=== PATIENT | female | born 2000 | race Caucasian/White ===

== ENCOUNTER 2019-09-12 08:00 | Outpatient (CLI) | payer MEDICAID ==
--- NOTE | 2019-09-12 14:19 | XRAY Report ---
Reason: RIGHT GROIN PAIN Procedure Date: 09/12/2019 Accession Number: [id number] / [id number] Procedure: [facility]CP - Pelvis 1 View CPT Code: Final Report FULL RESULT: EXAM: PELVIS RADIOGRAPHY EXAM DATE: 09/12/2019 01:55 PM. CLINICAL HISTORY: RIGHT GROIN PAIN. COMPARISON: None. TECHNIQUE: 1 view. FINDINGS: Bones: No acute fracture lines are seen. Screws in the right pubis, right acetabulum, and traversing the right SI joint appear intact without evidence for surrounding lucency or break. Irregularity of the right superior and inferior pubic rami may reflect sequelae of remote fractures. Joints: Normal alignment of the hip joints, SI joints, pubic symphysis. Soft Tissues: No soft tissue swelling. IUD noted. IMPRESSION: 1. No evidence for acute fracture or dislocation of the pelvis. Prior fractures of the right pubis are seen. Expected appearance and alignment of screws for internal fixation. [facility]
== END 2019-09-12 23:59 | disposition home or self-care (01) ==
LOC: DI.WCP 08:00
PROVIDERS: ATTEND Physician Assistant
DX: R10.31 Right lower quadrant pain (principal)
CPT/HCPCS: 72170

== ENCOUNTER 2021-03-26 08:00 | Outpatient (CLI) | payer MEDICAID ==
[2021-03-26 11:56] LABS: BASOPHILS # (AUTO) 0.1 10^3/uL (0.0-0.1); EOSINOPHILS # (AUTO) 0.6 10^3/uL (0.0-0.7); HCT - HEMATOCRIT 43.1 % (37.0-47.0); HGB - HEMOGLOBIN 14.6 g/dL (12.0-16.0); LYMPHOCYTES # (AUTO) 1.9 10^3/uL (1.5-3.5); LYMPHOCYTES % (AUTO) 27.8 %; MEAN CORPUSCULAR HEMOGLOBIN 30.9 pg (27.0-31.0); MEAN CORPUSCULAR HGB CONC 33.9 g/dL (32.0-36.0); MEAN CORPUSCULAR VOLUME 91.3 fL (81.0-99.0); MEAN PLATELET VOLUME 9.4 fL (7.9-10.8); MONOCYTES # (AUTO) 0.5 10^3/uL (0.0-1.0); NEUTROPHILS # (AUTO) 3.7 10^3/uL (1.5-6.6); NEUTROPHILS % (AUTO) 55.1 %; PLT - PLATELET COUNT 352 10^3/uL (130-450); RED BLOOD COUNT 4.72 10^6/uL (4.20-5.40); RED CELL DISTRIBUTION WIDTH 12.5 % (12.0-15.0); WHITE BLOOD COUNT 6.8 x10^3/uL (4.8-10.8)
[2021-03-26 12:26] LABS: ALBUMIN 4.6 g/dL (3.2-5.5); ALBUMIN/GLOBULIN RATIO 1.4 (1.0-2.2); ALKALINE PHOSPHATASE 46 IU/L (42-121); ALT ALANINE AMINOTRANSFERASE 14 IU/L (10-60); AST ASPARTATE AMINOTRANSFERASE 13 IU/L (10-42); BILIRUBIN,TOTAL 0.6 mg/dL (0.2-1.0); BUN - BLOOD UREA NITROGEN 16 mg/dL (6-20); CALCIUM 9.8 mg/dL (8.5-10.3); CARBON DIOXIDE - CO2 24 mmol/L (21-32); CHLORIDE 106 mmol/L (101-111); CHOL/HDL RATIO 3.7 (<4.4); CHOLESTEROL 209 mg/dL; CREATININE 0.7 mg/dL (0.4-1.0); GFR - MDRD 105 (>89); GLUCOSE 90 mg/dL (70-100); HDL CHOLESTEROL 57 mg/dL; LDL CHOLESTEROL,CALCULATED 144 mg/dL; LDL/HDL RATIO 2.5 (<4.4); POTASSIUM 4.3 mmol/L (3.5-5.0); SODIUM 140 mmol/L (135-145); TRIGLYCERIDES 41 mg/dL; VLDL CHOLESTEROL 8 mg/dL
== END 2021-03-26 23:59 | disposition home or self-care (01) ==
LOC: LAB.WCP 08:00
PROVIDERS: ATTEND Nurse Practitioner
DX: R53.83 Other fatigue (principal)
CPT/HCPCS: 36415; 80053; 80061; 83721; 85025

== ENCOUNTER 2021-07-16 12:48 | Outpatient (CLI) | payer MEDICAID ==
--- NOTE | 2021-07-16 14:33 | XRAY Report ---
PROCEDURE: Lumbar Spine 2 View INDICATIONS: BACK PAIN, LUMBAR TECHNIQUE: 3 views of the lumbar spine were acquired. COMPARISON: None. FINDINGS: Right sacroiliac arthrodesis screw and partially visualized right anterior pelvic fixation hardware. Sacroiliac joint spaces are maintained. Normal lumbar vertebral body height and alignment. No suspicious lytic or blastic osseous lesion. No significant disc height loss or degenerative endplate change. No significant degenerative changes of the facets or posterior elements. IMPRESSION: No acute finding or significant degenerative change in the lumbar spine. Sacroiliac fusion arthrodesis screw partially visualized pelvic fixation hardware. Reviewed by: Pierre Gonzalez MD on 07/16/2021 2:32 PM PST Approved by: Pierre Gonzalez MD on 07/16/2021 2:32 PM PST Station ID: [id number]
--- NOTE | 2021-07-16 16:31 | XRAY Report ---
PROCEDURE: Thoracic Spine 3 View INDICATIONS: BACK PAIN, LUMBAR TECHNIQUE: 3 views of the thoracic spine were acquired. COMPARISON: None. FINDINGS: Bones: No fractures or dislocations. No suspicious bony lesions. 12 pairs of ribs are noted, and a ppear intact where visualized. Soft tissues: No paravertebral stripe thickening. IMPRESSION: Normal appearance of thoracic spine. Reviewed by: Bernice Miller MD on 07/16/2021 4:29 PM PST Approved by: Bernice Miller MD on 07/16/2021 4:29 PM PST Station ID: [id number]
== END 2021-07-16 12:49 | disposition home or self-care (01) ==
LOC: DI.N 12:48
PROVIDERS: ATTEND Nurse Practitioner
DX: M54.50 Low back pain, unspecified (principal); Z98.1 Arthrodesis status

== ENCOUNTER 2021-09-01 07:26 | Outpatient (CLI) | payer MEDICAID ==
--- NOTE | 2021-09-01 09:43 | MRI Report ---
PROCEDURE: Lumbar Spine W/O INDICATIONS: LUMBAR RADICULOPATHY TECHNIQUE: Noncontrast sagittal T1 spin echo and T2 fast echo, sagittal STIR, axial T1 and T2 fast spin echo thr ough the lumbar spine. In cases with scoliosis, additional coronal T2 fast spin echo may be performe d. COMPARISON: Correlation is made with lumbar plain films, 07/16/2021. FINDINGS: Image quality: Diagnostic, with note made of motion artifact. There is artifact associated with the metallic hardware. Alignment and Curvature: There is normal bony alignment. Bone Marrow: Marrow is of normal overall signal. No acute vertebral body compression fractures. Spinal Cord: Conus medullaris terminates at the L1-L2 level. Visualized cord demonstrates normal si gnal and size. Paraspinous Soft Tissues: No paravertebral masses. T12-L1: Normal in appearance. L1-L2: Normal in appearance. L2-L3: Normal in appearance. L3-L4: Normal in appearance. L4-L5: Normal in appearance. L5-S1: The disc height and disc signal are well preserved. Mild disc bulge is seen. Mild facet h ypertrophy is seen. Moderate bilateral neural foraminal narrowing is seen. No significant central canal narrowing is seen. Postoperative change of the right pelvis is partially seen, with associated susceptibility artifact. IMPRESSION: Moderate bilateral neuroforaminal narrowing can be seen at L5-S1. Reviewed by: Jourdan Reyna MD on 09/01/2021 8:41 AM JR Approved by: Jourdan Reyna MD on 09/01/2021 8:41 AM JR Station ID: [id number]
== END 2021-09-01 07:27 | disposition home or self-care (01) ==
LOC: DI 07:26
PROVIDERS: ATTEND Physician Assistant Medical
DX: M47.817 Spondylosis without myelopathy or radiculopathy, lumbosacral region (principal); M48.07 Spinal stenosis, lumbosacral region

== ENCOUNTER 2022-07-31 17:34 | Emergency (ER) | payer MEDICAID ==
--- OUTSIDE RECORDS SUMMARY | 2022-07-31 17:57 | EXTERNAL MEDICAL SUMMARY RPT | Continuity of Care Document ---
:2000 Author Organization [facility] Address [address] [place] [address] Phone Allergies No information. Encounters No information. Functional Status No information. Immunizations No information. Medications No information. Problems No information. Procedures No information. Results/Labs test date author facility value unit interpret ation Result panel 1 (unknown) (no (unknown) (unknown) (no value) (units (unk nown) date) unknown) (unknown) (no (unknown) (unknown) #18 grams (units (unkn own) date) unknown) (unknown) (no (unknown) (unknown) #6.7 grams (units (unk nown) date) unknown) (unknown) (no (unknown) (unknown) #8.5 grams (units (unk nown) date) unknown) (unknown) (no (unknown) (unknown) <Electronically (units (unknown) date) signed by Kelly Waldrop> (unknown) (no (unknown) (unknown) <Electronically (units (unknown) date) signed by Rebecca alex) [place]> (unknown) (no (unknown) (unknown) <Kelly Waldrop, (units (unknown) date) GLADYS - Last Filed: unknown) 05/01/22 19:39> (unknown) (no (unknown) (unknown) <Rebecca Tolbert (units (unknown) date) DO - Last Filed: unknown) 05/14/22 11:23> (unknown) (no (unknown) (unknown) *If you do not (units (unknown) date) have a primary unknown) care provider please contact [phone] to (unknown) (no (unknown) (unknown) *Please continue (units (unknown) date) to take your unknown) regular medications as directed. (unknown) (no (unknown) (unknown) *Please follow up (units (unknown) date) with your primary unknown) care provider in 2-3 days, call for an (unknown) (no (unknown) (unknown) *Return to (units (unk nown) date) Emergency unknown) Department if you should have any new, worsening, or (unknown) (no (unknown) (unknown) *What to do: (units (u nknown) date) unknown) (unknown) (no (unknown) (unknown) *You have been (units (unknown) date) diagnosed with an unknown) asthma exacerbation, allergic rhinitis with (unknown) (no (unknown) (unknown) [id number] (units (unkno wn) date) unknown) (unknown) (no (unknown) (unknown) 0RF (units (unkno wn) date) unknown) (unknown) (no (unknown) (unknown) 1 inh inhalation (units (unknown) date) BID Qty: 10.6 1RF unknown) (unknown) (no (unknown) (unknown) 1 inh inhalation (units (unknown) date) Q6H PRN (Reason: unknown) shortness of breath or wheezing) Qty: 8.5 (unknown) (no (unknown) (unknown) 1 spray (units (unkno wn) date) intranasal BID unknown) Qty: 16 0RF (unknown) (no (unknown) (unknown) 05/01/22 1939 (units ( unknown) date) unknown) (unknown) (no (unknown) (unknown) 05/01/22 (units (unkno wn) date) unknown) (unknown) (no (unknown) (unknown) 05/14/22 1123 (units ( unknown) date) unknown) (unknown) (no (unknown) (unknown) 16:48 05/01/22 (units (unknown) date) unknown) (unknown) (no (unknown) (unknown) 17:35 05/01/22 (units (unknown) date) unknown) (unknown) (no (unknown) (unknown) 17:44 05/01/22 (units (unknown) date) unknown) (unknown) (no (unknown) (unknown) 18:00 05/01/22 (units (unknown) date) unknown) (unknown) (no (unknown) (unknown) 18:30 (units (unkno wn) date) unknown) (unknown) (no (unknown) (unknown) 19:00 11/19/22 (units (unknown) date) unknown) (unknown) (no (unknown) (unknown) 19:02 (units (unkno wn) date) unknown) (unknown) (no (unknown) (unknown) 19:11 (units (unkno wn) date) unknown) (unknown) (no (unknown) (unknown) 2 inhalation (units (u nknown) date) INHALATION QID PRN unknown) (Reason: shortness of breath or wheezing) (unknown) (no (unknown) (unknown) 2 puff INHALATION (units (unknown) date) Q4-6H PRN (Reason: unknown) shortness of breath or wheezing) Qty: 18 (unknown) (no (unknown) (unknown) 2 puff inhalation (units (unknown) date) Q6H PRN (Reason: unknown) shortness of breath or wheezing) Qty: 8.5 (unknown) (no (unknown) (unknown) 20 mg PO DAILY (units (unknown) date) Qty: 5 0RF unknown) (unknown) (no (unknown) (unknown) 2RF (units (unkno wn) date) unknown) (unknown) (no (unknown) (unknown) Activity (units (unkno wn) date) Restrictions/Addit unknown) ional Instructions: (unknown) (no (unknown) (unknown) After patient (units ( unknown) date) received the unknown) nebulizer, she was moving more air, states that she (unknown) (no (unknown) (unknown) Age/Sex: 22 / F (units (unknown) date) unknown) (unknown) (no (unknown) (unknown) Albuterol (units (unkn own) date) (Albuterol 2.5 unknown) Mg/3 Ml Neb (Adult)) 2.5 mg INH NOW ONE (unknown) (no (unknown) (unknown) Albuterol (units (unkn own) date) (Albuterol Hfa unknown) Prepack) 1 box MIS SEEINSTR ONE (unknown) (no (unknown) (unknown) All questions and (units (unknown) date) concerns answered unknown) at this time. (unknown) (no (unknown) (unknown) Allergic rhinitis (units (unknown) date) trigger: unknown) unspecified Allergic rhinitis seasonality: (unknown) (no (unknown) (unknown) Allergic rhinitis (units (unknown) date) unknown) (unknown) (no (unknown) (unknown) Allergies (units (unkn own) date) unknown) (unknown) (no (unknown) (unknown) Allergy/AdvReac (units (unknown) date) Type Severity unknown) Reaction Status Date / Time (unknown) (no (unknown) (unknown) Asthma (units (unkno wn) date) exacerbation unknown) (unknown) (no (unknown) (unknown) Asthma severity: (units (unknown) date) moderate Asthma unknown) persistence: unspecified Qualified Code(s): (unknown) (no (unknown) (unknown) Blood Pressure (units (unknown) date) 131/75 unknown) (unknown) (no (unknown) (unknown) Blood Pressure (units (unknown) date) 158/92 H 05/01/22 unknown) 16:48 (unknown) (no (unknown) (unknown) Blood Pressure (units (unknown) date) 158/92 H unknown) (unknown) (no (unknown) (unknown) Blood Pressure (units (unknown) date) unknown) (unknown) (no (unknown) (unknown) Cardiovascular: (units (unknown) date) regular rate and unknown) rhythm, no peripheral edema, warm extremities (unknown) (no (unknown) (unknown) Chief Complaint: (units (unknown) date) Shortness of unknown) Breath/Dyspnea (unknown) (no (unknown) (unknown) Clinical (units (unkno wn) date) Impression: unknown) (unknown) (no (unknown) (unknown) Consultation #1: (units (unknown) date) unknown) (unknown) (no (unknown) (unknown) Consultations (units ( unknown) date) unknown) (unknown) (no (unknown) (unknown) Cosign (units (unkno wn) date) unknown) (unknown) (no (unknown) (unknown) Course (units (unkno wn) date) unknown) (unknown) (no (unknown) (unknown) : 2000 (units (unknown) date) Acct:[id number] unknown) (unknown) (no (unknown) (unknown) Date of Service: (units (unknown) date) 05/01/22 unknown) (unknown) (no (unknown) (unknown) Decrease your (units ( unknown) date) stimuli to unknown) triggers, please come back if you get worse, hopefully (unknown) (no (unknown) (unknown) Departure (units (unkn own) date) unknown) (unknown) (no (unknown) (unknown) Diphenhydramine (units (unknown) date) HCl unknown) (Diphenhydramine 25 Mg Tablet) 25 mg PO NOW ONE (unknown) (no (unknown) (unknown) Discharge Plan (units (unknown) date) unknown) (unknown) (no (unknown) (unknown) Discontinued (units (u nknown) date) Medications unknown) (unknown) (no (unknown) (unknown) Documented By: (units (unknown) date) JZF unknown) (unknown) (no (unknown) (unknown) Documented By: (units (unknown) date) DANYELL unknown) (unknown) (no (unknown) (unknown) ED Attending (units (u nknown) date) Cosignature unknown) Attestation: (unknown) (no (unknown) (unknown) ER Physician: (units ( unknown) date) Kelly Waldrop unknown) [employer]ER (unknown) (no (unknown) (unknown) Emergency Report (units (unknown) date) unknown) (unknown) (no (unknown) (unknown) Exam Narrative: (units (unknown) date) unknown) (unknown) (no (unknown) (unknown) Exam (units (unkno wn) date) unknown) (unknown) (no (unknown) (unknown) General (units (unkno wn) date) unknown) (unknown) (no (unknown) (unknown) General: (units (unkno wn) date) cooperative, unknown) comfortable, in no acute distress, well groomed, afebrile (unknown) (no (unknown) (unknown) HEENT: symmetrical (units (unknown) date) facial unknown) expressions, moist mucous membranes, nasal congestion, (unknown) (no (unknown) (unknown) HPI - SOB/Dyspnea (units (unknown) date) unknown) (unknown) (no (unknown) (unknown) HPI Narrative: (units (unknown) date) unknown) (unknown) (no (unknown) (unknown) HPI (units (unkno wn) date) unknown) (unknown) (no (unknown) (unknown) History of (units (unk nown) date) Present Illness unknown) (unknown) (no (unknown) (unknown) Cari Jorgensen, (units (unknown) date) PA-C [Primary Care unknown) Provider] (unknown) (no (unknown) (unknown) I was immediately (units (unknown) date) available in the unknown) department for consultation. Documentation (unknown) (no (unknown) (unknown) Initial Vital (units ( unknown) date) Signs unknown) (unknown) (no (unknown) (unknown) Initial Vital (units ( unknown) date) Signs: unknown) (unknown) (no (unknown) (unknown) Instructions: (units ( unknown) date) Asthma -- Adult, unknown) Allergic Rhinitis (unknown) (no (unknown) (unknown) [facility] (units (unknown) date) [address] [place] [address] unknown) [place] [address] (unknown) (no (unknown) (unknown) It can be helpful (units (unknown) date) to take magnesium unknown) oxide 400 mg at night to relax smooth muscle (unknown) (no (unknown) (unknown) J45.901 - (units (unkn own) date) Unspecified asthma unknown) with (acute) exacerbation (unknown) (no (unknown) (unknown) Last Admin: (units (un known) date) 05/01/22 17:44 unknown) Dose: 1 box (unknown) (no (unknown) (unknown) Last Admin: (units (un known) date) 05/01/22 18:51 unknown) Dose: 40 mg (unknown) (no (unknown) (unknown) Last Admin: (units (un known) date) 05/01/22 18:52 unknown) Dose: 25 mg (unknown) (no (unknown) (unknown) Last Admin: (units (un known) date) 05/01/22 19:02 unknown) Dose: 2.5 mg (unknown) (no (unknown) (unknown) Limitations: no (units (unknown) date) limitations unknown) (unknown) (no (unknown) (unknown) MDM - SOB/Dyspnea (units (unknown) date) unknown) (unknown) (no (unknown) (unknown) MDM Narrative (units ( unknown) date) unknown) (unknown) (no (unknown) (unknown) Medical History (units (unknown) date) (Reviewed 05/01/22 unknown) @ 19:07 by Kelly Waldrop [facility]) (unknown) (no (unknown) (unknown) Medical decision (units (unknown) date) making narrative: unknown) (unknown) (no (unknown) (unknown) Medication (units (unk nown) date) Instructions unknown) Recorded (unknown) (no (unknown) (unknown) Mode of arrival: (units (unknown) date) Family Vehicle unknown) (unknown) (no (unknown) (unknown) Narrative (units (unkn own) date) unknown) (unknown) (no (unknown) (unknown) Narrative: (units (unk nown) date) unknown) (unknown) (no (unknown) (unknown) Neuro: normal (units ( unknown) date) speech and unknown) cognition, A+O x3, ambulatory, clear speech (unknown) (no (unknown) (unknown) New (units (unkno wn) date) unknown) (unknown) (no (unknown) (unknown) No Action (units (unkn own) date) unknown) (unknown) (no (unknown) (unknown) No Known Drug (units ( unknown) date) Allergies Allergy unknown) Verified 02/23/21 21:25 (unknown) (no (unknown) (unknown) No significant (units (unknown) date) past surgical unknown) history (unknown) (no (unknown) (unknown) Railroad] (units (un known) date) unknown) (unknown) (no (unknown) (unknown) Ordered: (units (unkno wn) date) unknown) (unknown) (no (unknown) (unknown) Orders (units (unkno wn) date) unknown) (unknown) (no (unknown) (unknown) Oxygen Delivery (units (unknown) date) Method 05/01/22 unknown) 16:48 (unknown) (no (unknown) (unknown) Oxygen Delivery (units (unknown) date) Method Room Air unknown) Room Air Room Air (unknown) (no (unknown) (unknown) Oxygen Delivery (units (unknown) date) Method unknown) (unknown) (no (unknown) (unknown) Patient (units (unkno wn) date) Disposition: Home unknown) (unknown) (no (unknown) (unknown) Patient History (units (unknown) date) unknown) (unknown) (no (unknown) (unknown) Patient: (units (unkno wn) date) Picken,Tricia M unknown) MR#: [id number] (unknown) (no (unknown) (unknown) Prednisone (units (unk nown) date) (Prednisone 20 Mg unknown) Tablet) 40 mg PO NOW ONE (unknown) (no (unknown) (unknown) Prescriptions: (units (unknown) date) unknown) (unknown) (no (unknown) (unknown) Previous Rx's (units ( unknown) date) unknown) (unknown) (no (unknown) (unknown) Psych: mental (units ( unknown) date) status is grossly unknown) normal, congruent mood, normal affect, pleasant (unknown) (no (unknown) (unknown) Pulse Oximetry 98 (units (unknown) date) 05/01/22 16:48 unknown) (unknown) (no (unknown) (unknown) Pulse Oximetry 98 (units (unknown) date) 98 98 unknown) (unknown) (no (unknown) (unknown) Pulse Oximetry 98 (units (unknown) date) unknown) (unknown) (no (unknown) (unknown) Pulse Rate 70 (units ( unknown) date) unknown) (unknown) (no (unknown) (unknown) Pulse Rate 79 79 (units (unknown) date) 67 unknown) (unknown) (no (unknown) (unknown) Pulse Rate 81 (units ( unknown) date) 05/01/22 16:48 unknown) (unknown) (no (unknown) (unknown) Pulse Rate 81 69 (units (unknown) date) 64 unknown) (unknown) (no (unknown) (unknown) QVAR ordered on (units (unknown) date) her Mar. She has a unknown) new primary care provider there over the (unknown) (no (unknown) (unknown) Qty: 6.7 0RF (units (u nknown) date) unknown) (unknown) (no (unknown) (unknown) Qualifiers: (units (un known) date) unknown) (unknown) (no (unknown) (unknown) Qvar RediHaler 80 (units (unknown) date) mcg/actuation HFA unknown) aerosol breath activated (unknown) (no (unknown) (unknown) Reactive airway (units (unknown) date) disease unknown) (unknown) (no (unknown) (unknown) Referrals: (units (unk nown) date) unknown) (unknown) (no (unknown) (unknown) Related Data (units (u nknown) date) unknown) (unknown) (no (unknown) (unknown) Respiratory Rate (units (unknown) date) 20 05/01/22 16:48 unknown) (unknown) (no (unknown) (unknown) Respiratory Rate (units (unknown) date) 20 16 16 unknown) (unknown) (no (unknown) (unknown) Respiratory Rate (units (unknown) date) unknown) (unknown) (no (unknown) (unknown) Respiratory come (units (unknown) date) and do an unknown) evaluation, she was given an albuterol inhaler and (unknown) (no (unknown) (unknown) Respiratory (units (un known) date) therapy completed unknown) assessment, please see their note, she sounded (unknown) (no (unknown) (unknown) Respiratory: (units (u nknown) date) normal effort, unknown) able to speak in complete sentences, without (unknown) (no (unknown) (unknown) Review of Systems (units (unknown) date) unknown) (unknown) (no (unknown) (unknown) Review of systems (units (unknown) date) is negative for unknown) acute abnormalities unless otherwise noted in (unknown) (no (unknown) (unknown) Reviewed vitals (units (unknown) date) signs and nursing unknown) notes. (unknown) (no (unknown) (unknown) Rx Instructions: (units (unknown) date) unknown) (unknown) (no (unknown) (unknown) Signed By: (units (unk nown) date) unknown) (unknown) (no (unknown) (unknown) Skin: brisk (units (un known) date) capillary refill, unknown) without pallor or erythema (unknown) (no (unknown) (unknown) Smoking Status: (units (unknown) date) Former smoker unknown) (unknown) (no (unknown) (unknown) Social History (units (unknown) date) (Reviewed 05/01/22 unknown) @ 19:07 by Kelly Waldrop [facility]) (unknown) (no (unknown) (unknown) Source: patient (units (unknown) date) unknown) (unknown) (no (unknown) (unknown) Stated Complaint: (units (unknown) date) Asthma unknown) (unknown) (no (unknown) (unknown) Stop: 05/01/22 (units (unknown) date) 17:42 unknown) (unknown) (no (unknown) (unknown) Stop: 05/01/22 (units (unknown) date) 18:45 unknown) (unknown) (no (unknown) (unknown) Stop: 05/01/22 (units (unknown) date) 18:47 unknown) (unknown) (no (unknown) (unknown) Substance Use (units ( unknown) date) Type: marijuana unknown) (unknown) (no (unknown) (unknown) Surgical History (units (unknown) date) (Reviewed 05/01/22 unknown) @ 19:07 by Kelly Waldrop [facility]) (unknown) (no (unknown) (unknown) Temperature 98.5 (units (unknown) date) F 05/01/22 16:48 unknown) (unknown) (no (unknown) (unknown) Temperature 98.5 (units (unknown) date) F unknown) (unknown) (no (unknown) (unknown) Temperature (units (un known) date) unknown) (unknown) (no (unknown) (unknown) This is a (units (unkn own) date) 22-year-old female unknown) presents to the emergency department after she had (unknown) (no (unknown) (unknown) This is a (units (unkn own) date) 22-year-old female unknown) with history of asthma, allergic rhinitis, she was (unknown) (no (unknown) (unknown) Time Seen by (units (u nknown) date) Provider: 05/01/22 unknown) 17:41 (unknown) (no (unknown) (unknown) Visit Report (units (u nknown) date) Forms: Patient unknown) Portal/API (unknown) (no (unknown) (unknown) Vital Signs - 8 (units (unknown) date) hr unknown) (unknown) (no (unknown) (unknown) Vital Signs (units (un known) date) unknown) (unknown) (no (unknown) (unknown) Vital signs: (units (u nknown) date) unknown) (unknown) (no (unknown) (unknown) [facility] (units (unknown) date) Clinic, she unknown) understands to follow-up with them regarding her (unknown) (no (unknown) (unknown) [ ] New (units (unkno wn) date) medication written unknown) as a paper prescription (unknown) (no (unknown) (unknown) [ ] No new (units (unk nown) date) medications given unknown) (unknown) (no (unknown) (unknown) [x ] New (units (unkno wn) date) medication unknown) prescriptions sent to your pharmacy: [ [facility] (unknown) (no (unknown) (unknown) a prepack (units (unkn own) date) albuterol MDI and unknown) had 6 puffs, she was still height, moving air (unknown) (no (unknown) (unknown) a smell of strong (units (unknown) date) perfume which unknown) triggered her asthma and she has been coughing (unknown) (no (unknown) (unknown) administer into (units (unknown) date) each nostril unknown) (unknown) (no (unknown) (unknown) aerosol (Qvar (units ( unknown) date) RediHaler) unknown) (unknown) (no (unknown) (unknown) aerosol inhaler (units (unknown) date) (Ventolin HFA) unknown) shortness of breath or wheezing (unknown) (no (unknown) (unknown) aerosol inhaler (units (unknown) date) of breath or unknown) wheezing #8.5 grams (unknown) (no (unknown) (unknown) aerosol inhaler (units (unknown) date) shortness of unknown) breath or wheezing (unknown) (no (unknown) (unknown) afterwards (units (unk nown) date) unknown) (unknown) (no (unknown) (unknown) albuterol sulfate (units (unknown) date) 90 mcg/actuation 1 unknown) inh inhalation Q6H PRN shortness 05/01/22 (unknown) (no (unknown) (unknown) albuterol sulfate (units (unknown) date) 90 mcg/actuation 2 unknown) inhalation inhalation QID PRN 02/03/21 (unknown) (no (unknown) (unknown) albuterol sulfate (units (unknown) date) 90 mcg/actuation 2 unknown) puff inhalation Q4-6H PRN 12/17/19 (unknown) (no (unknown) (unknown) albuterol sulfate (units (unknown) date) 90 mcg/actuation 2 unknown) puff inhalation Q6H PRN 02/24/21 (unknown) (no (unknown) (unknown) albuterol sulfate (units (unknown) date) 90 mcg/actuation unknown) HFA aerosol inhaler (unknown) (no (unknown) (unknown) albuterol sulfate (units (unknown) date) [Ventolin HFA] 90 unknown) mcg/actuation HFA aerosol inhaler (unknown) (no (unknown) (unknown) alcohol intake (units (unknown) date) frequency: 0-2 unknown) drinks per day (unknown) (no (unknown) (unknown) and cooperative (units (unknown) date) unknown) (unknown) (no (unknown) (unknown) appointment. Let (units (unknown) date) them know you were unknown) seen in the Emergency Department and that we (unknown) (no (unknown) (unknown) as well. (units (unkno wn) date) unknown) (unknown) (no (unknown) (unknown) asked that you be (units (unknown) date) seen for unknown) follow-up. We will electronically transmit a record (unknown) (no (unknown) (unknown) asthma (units (unkno wn) date) exacerbations. She unknown) typically only needs her albuterol inhaler 1 time per (unknown) (no (unknown) (unknown) beclomethasone (units (unknown) date) dipropionate 80 1 unknown) inh inhalation BID #10.6 grams 02/24/21 (unknown) (no (unknown) (unknown) better and is (units ( unknown) date) able to take unknown) deeper breaths now. The pharmacies were closed, she (unknown) (no (unknown) (unknown) coming in. (units (unk nown) date) unknown) (unknown) (no (unknown) (unknown) concerning (units (unk nown) date) symptoms, such as unknown) [fever greater than 101F, chills, worsening pain, (unknown) (no (unknown) (unknown) establish care (units (unknown) date) with one of the unknown) [facility] primary care providers. (unknown) (no (unknown) (unknown) evaluation. She (units (unknown) date) states that she is unknown) short of breath, tight, does not think she (unknown) (no (unknown) (unknown) exposed to a (units (u nknown) date) strong perfume unknown) today which started a coughing exacerbation, states (unknown) (no (unknown) (unknown) feels much better (units (unknown) date) and was coughing unknown) less. Patient is okay with being discharged (unknown) (no (unknown) (unknown) fluticasone (units (un known) date) propionate 50 1 unknown) spray intranasal BID allergic 05/01/22 (unknown) (no (unknown) (unknown) fluticasone (units (un known) date) propionate 50 unknown) mcg/actuation spray,suspension (unknown) (no (unknown) (unknown) fragments as your (units (unknown) date) trigger today. unknown) Please continue with your montelukast, you can (unknown) (no (unknown) (unknown) give neb and (units (u nknown) date) reassess unknown) (unknown) (no (unknown) (unknown) has been (units (unkno wn) date) reviewed. unknown) (unknown) (no (unknown) (unknown) has used it 6 (units ( unknown) date) times since she unknown) arrived. She states that she feels better but (unknown) (no (unknown) (unknown) her 1st trigger (units (unknown) date) was horses and unknown) animal dander, she states that she has multiple (unknown) (no (unknown) (unknown) home (units (unkno wn) date) unknown) (unknown) (no (unknown) (unknown) ibuprofen and or (units (unknown) date) Tylenol as needed unknown) for your symptoms. You may take Benadryl at (unknown) (no (unknown) (unknown) inhaler and she (units (unknown) date) is used it 6 unknown) times, I called for a nebulizer, will assess this (unknown) (no (unknown) (unknown) is wheezing but (units (unknown) date) feels that her unknown) chest is tight. Nurse initiated orders had (unknown) (no (unknown) (unknown) mcg/actuation HFA (units (unknown) date) breath activated unknown) (unknown) (no (unknown) (unknown) mcg/actuation (units ( unknown) date) nasal rhinitis #16 unknown) grams (unknown) (no (unknown) (unknown) mg of Benadryl (units (unknown) date) for her allergic unknown) rhinitis symptoms, stated that she felt much (unknown) (no (unknown) (unknown) month. Patient is (units (unknown) date) appropriate and unknown) amenable to discharge home. Vital signs are (unknown) (no (unknown) (unknown) movement and (units (u nknown) date) sounds tight. unknown) Patient has had 6 albuterol puffs from her MDI, will (unknown) (no (unknown) (unknown) night to help (units ( unknown) date) decrease some unknown) congestion if you have it, please follow-up with (unknown) (no (unknown) (unknown) of prednisone, (units (unknown) date) and she has taken unknown) her other medications. She was also given 25 (unknown) (no (unknown) (unknown) of today's note (units (unknown) date) if your PCP is in unknown) our system (unknown) (no (unknown) (unknown) patient is (units (unk nown) date) breathing through unknown) her mouth (unknown) (no (unknown) (unknown) persistent (units (unk nown) date) vomiting or other unknown) bothersome symptoms]. (unknown) (no (unknown) (unknown) pharmacy, try to (units (unknown) date) avoid triggers, unknown) dry air, cold air, and stay hydrated. Use (unknown) (no (unknown) (unknown) prednisone 20 mg (units (unknown) date) tablet 20 mg PO unknown) DAILY #5 tabs 02/24/21 (unknown) (no (unknown) (unknown) prednisone 20 mg (units (unknown) date) tablet unknown) (unknown) (no (unknown) (unknown) providers as (units (u nknown) date) instructed. unknown) Patient understands plan and agrees to discharge home. (unknown) (no (unknown) (unknown) regimen. I hope (units (unknown) date) that you feel unknown) better soon, thank you for coming in. (unknown) (no (unknown) (unknown) results. Patient (units (unknown) date) has been given unknown) strict return to ER precautions for any new or (unknown) (no (unknown) (unknown) rhinitis as well. (units (unknown) date) She ran out of her unknown) albuterol inhaler and came in for (unknown) (no (unknown) (unknown) since a child, (units ( unknown) date) states her unknown) baseline only requires albuterol inhaler once a month, (unknown) (no (unknown) (unknown) spray,suspension (units (unknown) date) unknown) (unknown) (no (unknown) (unknown) stable on repeat (units (unknown) date) examination is unknown) unremarkable. Patient has been informed of (unknown) (no (unknown) (unknown) still feels (units (un known) date) tight. She takes unknown) montelukast at baseline, encouraged her to follow (unknown) (no (unknown) (unknown) that she has use (units (unknown) date) the rest of her unknown) albuterol inhaler at home, came in for help (unknown) (no (unknown) (unknown) that she sees a (units (unknown) date) new provider at unknown) the [facility]. She has had asthma (unknown) (no (unknown) (unknown) tight for (units (unkn own) date) Respiratory unknown) therapy and was without wheezes as well. They gave her an (unknown) (no (unknown) (unknown) tobacco type: (units ( unknown) date) cigarettes unknown) (unknown) (no (unknown) (unknown) triggers now. (units ( unknown) date) unknown) (unknown) (no (unknown) (unknown) typical (units (unkno wn) date) medications, unknown) states that she takes montelukast but I see that she has (unknown) (no (unknown) (unknown) unspecified (units (un known) date) Qualified Code(s): unknown) J30.9 - Allergic rhinitis, unspecified (unknown) (no (unknown) (unknown) up with her (units (un known) date) primary care unknown) provider and refill of her medications. 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 unknown) Nursing initiated orders were put in, she received (unknown) (no (unknown) (unknown) with increased (units (unknown) date) nasal congestion unknown) since, she states she has history of allergic (unknown) (no (unknown) (unknown) without wheezes (units (unknown) date) but not very much. unknown) She was given 1 albuterol nebulizer, 40 mg (unknown) (no (unknown) (unknown) worsening (units (unkn own) date) symptoms. Patient unknown) understands to follow up closely with outpatient (unknown) (no (unknown) (unknown) worsening to come (units (unknown) date) back to the unknown) emergency department. Recommend magnesium, her (unknown) (no (unknown) (unknown) you get better (units (unknown) date) overnight and unknown) nebulizer was helpful. I wish you well, thanks for (unknown) (no (unknown) (unknown) your regular (units (u nknown) date) doctor if you have unknown) worsening triggers to assess your asthma Social History No information. Vital Signs No information.
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
[2022-07-31 18:12] LABS: BILIRUBIN,URINE NEGATIVE (NEGATIVE); GLUCOSE, URINE (UA) NEGATIVE (NEGATIVE); KETONES,URINE (UA) NEGATIVE (NEGATIVE); LEUKOCYTE ESTERASE, URINE NEGATIVE (NEGATIVE); NITRITE,URINE NEGATIVE (NEGATIVE); OCCULT BLOOD,URINE MODERATE (NEGATIVE); PROTEIN,URINE NEGATIVE (NEGATIVE); UROBILINOGEN,URINE 0.2 (NORMAL) E.U./dL (NORMAL)
[2022-07-31 18:14] LABS: CLARITY,URINE CLEAR (CLEAR)
[2022-07-31 18:15] LABS: HCG UR QUAL POSITIVE
[2022-07-31 18:17] LABS: ALBUMIN 4.7 g/dL (3.2-5.5); ALBUMIN/GLOBULIN RATIO 1.4 (1.0-2.2); BILIRUBIN,TOTAL 1.2 mg/dL (0.2-1.0); CALCIUM 9.2 mg/dL (8.5-10.3); CREATININE 0.7 mg/dL (0.4-1.0); POTASSIUM 3.4 mmol/L (3.5-5.0); TOTAL PROTEIN 8.1 g/dL (6.7-8.2)
[2022-07-31 18:32] LABS: BASOPHILS % (AUTO) 0.6 %; EOSINOPHILS # (AUTO) 0.2 10^3/uL (0.0-0.7); EOSINOPHILS % (AUTO) 3.1 %; HCT - HEMATOCRIT 42.3 % (37.0-47.0); HGB - HEMOGLOBIN 14.1 g/dL (12.0-16.0); LYMPHOCYTES # (AUTO) 1.9 10^3/uL (1.5-3.5); LYMPHOCYTES % (AUTO) 29.2 %; MEAN CORPUSCULAR HEMOGLOBIN 29.9 pg (27.0-31.0); MEAN CORPUSCULAR HGB CONC 33.3 g/dL (32.0-36.0); MEAN CORPUSCULAR VOLUME 89.6 fL (81.0-99.0); MEAN PLATELET VOLUME 9.5 fL (7.9-10.8); MONOCYTES # (AUTO) 0.4 10^3/uL (0.0-1.0); MONOCYTES % (AUTO) 6.7 %; NEUTROPHILS # (AUTO) 3.9 10^3/uL (1.5-6.6); NEUTROPHILS % (AUTO) 60.1 %; PLT - PLATELET COUNT 360 10^3/uL (130-450); RED BLOOD COUNT 4.72 10^6/uL (4.20-5.40); WHITE BLOOD COUNT 6.5 x10^3/uL (4.8-10.8)
[2022-07-31 18:32] LABS: BACTERIA,URINE Rare /HPF (None Seen); RBC,URINE 0-5 /HPF (0-5); SQUAMOUS EPITHELIAL CELL,UR MOD Squamous (<= Few); WBC,URINE 0-3 /HPF (0-5)
[2022-07-31 19:47] VITALS: BP 137/95
--- NOTE | 2022-07-31 19:50 | Ultrasound Report ---
PROCEDURE: OB First Trimester w/TV INDICATIONS: pelvic pain, spotting, IUD, suprise preg OUTSIDE/PRIOR DATING DATA: Last menstrual period (LMP): 07/18/2022. LMP-based estimated date of delivery (GURPREET): Not applicable. First dating scan (date and location): 07/31/2022. Estimated date of delivery (GURPREET) from first dating scan: Not applicable TECHNIQUE: Real-time scanning was performed of the fetus and maternal pelvic organs, with image documentation. Endovaginal scanning was also performed to better visualize the fetus and maternal ovaries. COMPARISON: None FINDINGS: Intrauterine device is noted within endometrium central endometrium. No intrauterine gestational sac is seen. Mildly heterogeneous endometrium without endometrial mass or fluid. Uterus is within normal limits. No discrete uterine fibroids. Complex cystic structure is seen within the right ovary measures 4.1 x 3.5 x 4.6 cm in size with inte rnal debris. No internal vascularity is seen. Debris within right ovary measures 1.5 x 1.7 cm in size without internal vascularity. Moderate free fluid is seen in posterior cul-de-sac. Trace amount of free fluid is seen in right adne xa. IMPRESSION: 1. Intrauterine device is in its central endometrial location. No endometrial mass or fluid. No intra uterine gestational sac. 2. Complex cystic structure in right ovary as described above. Finding may represent a complex ovaria n cyst. Ectopic gestational sac cannot be excluded. No definite pole is seen. No cardiac activity is detected. Correlation with beta-hCG levels and follow-up ultrasound is recommended. Reviewed by: Joe Perez MD on 07/31/2022 7:49 PM PST Approved by: Joe Perez MD on 07/31/2022 7:49 PM PST Station ID: [id number]
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
== END 2022-07-31 20:22 | disposition home or self-care (01) ==
LOC: ED 17:34
DX: O36.80X0 Pregnancy with inconclusive fetal viability, not applicable or unspecified (principal); Z3A.00 Weeks of gestation of pregnancy not specified; Z97.5 Presence of (intrauterine) contraceptive device
CPT/HCPCS: 36415; 80048; 80053; 81001; 81003; 81025; 84702; 85025; 86900; 86901; 87086; 99284

== ENCOUNTER 2022-08-02 08:54 | Outpatient (CLI) | payer MEDICAID ==
[2022-08-02 09:08] LABS: HGB - HEMOGLOBIN 13.5 g/dL (12.0-16.0); MEAN CORPUSCULAR HEMOGLOBIN 30.1 pg (27.0-31.0); MEAN CORPUSCULAR HGB CONC 33.8 g/dL (32.0-36.0); MEAN CORPUSCULAR VOLUME 89.3 fL (81.0-99.0); MEAN PLATELET VOLUME 9.4 fL (7.9-10.8); RED BLOOD COUNT 4.48 10^6/uL (4.20-5.40); WHITE BLOOD COUNT 5.8 x10^3/uL (4.8-10.8)
== END 2022-08-02 08:55 | disposition home or self-care (01) ==
LOC: LAB 08:54
PROVIDERS: ATTEND Obstetrics & Gynecology
DX: Z32.01 Encounter for pregnancy test, result positive (principal)
CPT/HCPCS: 36415; 84702; 85027